=== PATIENT | male | born 1955 | race Caucasian/White ===

== ENCOUNTER 2020-02-09 18:55 | Emergency (ER) | payer OTHER ==
[~2020-02-09] VITALS: Ht 165.1 cm; Wt 59.9 kg
[2020-02-09] MEDS ORDERED: SYNTHROID88 MCG (19:26)
[2020-02-09] MEDS ORDERED: CRESTOR40 MG (19:27)
[2020-02-09] MEDS ORDERED: SYNTHROID75 MCG (19:28)
[2020-02-09] MEDS ORDERED: TOPROL XL25 M1 (19:29)
[2020-02-09] MEDS ORDERED: DICLOFENAC 75 MG (19:30)
== END 2020-02-10 00:39 | disposition home or self-care (01) ==
LOC: ER 18:55
DX: B34.9 Viral infection, unspecified (principal); D69.49 Other primary thrombocytopenia; Z03.818 Encounter for observation for suspected exposure to other biological agents ruled out; N28.1 Cyst of kidney, acquired; N40.0 Benign prostatic hyperplasia without lower urinary tract symptoms

== ENCOUNTER 2021-06-03 10:25 | Emergency (ER) | payer OTHER ==
[~2021-06-03] VITALS: Ht 165.1 cm; Wt 61.7 kg
[~2021-06-03 10:25] MED LIST: CRESTOR40 MG; DICLOFENAC 75 MG; SYNTHROID75 MCG; SYNTHROID88 MCG; TOPROL XL25 M1
[2021-06-03] MEDS ORDERED: CRESTOR40 MG PO (10:46)
[2021-06-03] MEDS ORDERED: TAMS0.4C PO (10:47)
[2021-06-03] MEDS ORDERED: REPATHA SU140 MG/1 M SUBCUTANEO (10:47)
== END 2021-06-03 14:09 | disposition home or self-care (01) ==
LOC: ER 10:25
DX: R10.84 Generalized abdominal pain (principal); N28.1 Cyst of kidney, acquired